=== PATIENT | female | born 1970 | race Caucasian/White ===

== ENCOUNTER 2016-10-20 22:35 | Emergency (ER) | payer BC, MEDICAID ==
[~2016-10-20] VITALS: Wt 69.1 kg
[2016-10-21] MEDS ORDERED: IPRATROPIUM (NEB) 0.5 MG/2.5 ML AMP NEB STA (00:51)
[2016-10-21] MEDS ORDERED: ALBUTEROL 0.083% (NEB) 2.5 MG/3 ML AMP NEB STA (00:51)
[2016-10-21] MEDS ORDERED: predniSONE 20 MG TAB PO STA (00:51)
--- NOTE | 2016-10-21 01:30 | ERD ---
ER Documentation Chief Complaint Date/Time DATE: 10/21/16 TIME: 01:26 Chief Complaint cough, congestion, back pain HPI This a 45-year-old female who presents to the emergency department today complaining of cough, congestion and pain in her back from coughing for the past 2 weeks. States she has seen her primary care doctor and was given promethazine with codeine with no improvement in symptoms. Denies any fevers or chills. ROS All systems reviewed and are negative except as per history of present illness. Medications Home Meds Active Scripts Fluticasone Propionate (Flonase Allergy Relief) 9.9 Ml [place].susp, 1 SPRAY NASAL BID, #1 BOTTLE TO EACH NOSTRIL Prov:ROBERTO JETER PA-C 10/21/16 Prednisone* (Prednisone*) 20 Mg Tab, 40 MG PO DAILY for 4 Days, TAB Prov:ROBERTO JETER PA-C 10/21/16 Albuterol Sulfate* (Proair HFA*) 8.5 Gm Hfa.aer.ad, 2 PUFF INH Q4, #1 INHALER Prov:ROBERTO JETER PA-C 10/21/16 Azithromycin* (Zithromax*) 250 Mg Tablet, 250 MG PO .ZPACK DIRECTED, #6 TAB TAKE 500 MG (2 TABS) THE FIRST DAY THEN 250 MG (1 TAB) DAYS 2-5 Prov:ROBERTO JETER PA-C 10/21/16 Allergies Allergies: Coded Allergies: Ampicillin (Verified Allergy, Intermediate, SOB, 07/24/07) PMhx/Soc Medical and Surgical Hx: pt denies Medical Hx, pt denies Surgical Hx History of Surgery: No Anesthesia Reaction: No Hx Neurological Disorder: No Hx Respiratory Disorders: No Hx Cardiac Disorders: No Hx Psychiatric Problems: No Hx Miscellaneous Medical Probl: No Hx Alcohol Use: No Hx Substance Use: No Hx Tobacco Use: No Smoking Status: Never smoker Physical Exam Vitals Vital Signs Date Time Temp Pulse Resp B/P Pulse Ox O2 Delivery O2 Flow Rate FiO2 10/21/16 01:11 89 20 98 21 10/20/16 22:46 98.1 67 20 139/75 100 Physical Exam Const: No acute distress Head: Atraumatic Eyes: Normal Conjunctiva ENT: Ears TMs normal. Nose no drainage. Throat no erythema no exudate Neck: Full range of motion..~ No meningismus. Resp: Right side upper lung hare with wheezing. Left-sided lung hare clear Cardio: Regular rate and rhythm, no murmurs Skin: No petechiae or rashes Back: No midline or flank tenderness Neur: Awake and alert Psych: Normal Mood and Affect Results 24 hrs Current Medications Medications (Trade) Dose Ordered Sig/Alec Route PRN Reason Start Time Stop Time Status Last Admin Dose Admin Albuterol (Proventil 0.083% (Neb)) 5 mg ONCE STAT NEB 10/21/16 00:51 10/21/16 00:53 DC 10/21/16 01:11 Ipratropium [place] (Atrovent 0.02% (Neb)) 0.5 mg ONCE STAT NEB 10/21/16 00:51 10/21/16 00:53 DC 10/21/16 01:11 Prednisone (Prednisone) 60 mg ONCE STAT PO 10/21/16 00:51 10/21/16 00:53 DC 10/21/16 01:52 DIAGNOSTIC IMAGING REPORT Patient: BRITTANI DOBSON : 1970 Age: 45 Sex: F MR #: [id number] DOS: 10/21/16 0051 Ordering MD: ROBERTO JETER PA-C Location: [facility] Room/Bed: PROCEDURE: XR Chest. CLINICAL INDICATION: Asthma exacerbation. TECHNIQUE: Single frontal view of the chest was obtained COMPARISON: None FINDINGS: The heart and mediastinum are within normal limits. Hyperinflation suggests a degree of COPD with changes of centrolobular emphysema. Lungs otherwise clear. There is no pleural effusion or pneumothorax. IMPRESSION: No acute disease. RPTAT: [facility] Physician David Date Time Electronically viewed and signed by Physician David on 10/21/2016 01:34 RS/ CC: ROBERTO JETER PA-C Procedures/MDM This is a 45-year-old female who presents to the emergency department today for cough, congestion and back pain with cough for the past 2 weeks. Patient has tried [id number]-[id number] medications. On physical exam patient did have some wheezing in the right-sided upper lung hare. She is afebrile and otherwise well-appearing her oxygen saturations 100% however given patient's wheezing and complaints of cough for the past 2 weeks I did obtain a chest x-ray as well as give the patient a breathing treatment here in the emergency department and prednisone. Chest x-ray shows hyperinflation suggesting a degree of COPD with changes of centrilobular emphysema. Lungs are otherwise clear. There is no pleural effusion or pneumothorax. There is no acute disease. I have explained the radiology results to the patient. I have low suspicion for strep pharyngitis, peritonsillar abscess, retropharyngeal abscess, otitis media, PNA, sinusitis, abscess, meningitis, sepsis, or other acute infectious bacterial process. Patient was given a prescription for azithromycin to treat possible bronchitis. Also give her an inhaler as well as Naprosyn and Flonase. Patient may continue taking her promethazine as prescribed. At this time the patient is stable for discharge and outpatient management. Patient should follow up with their PCP in the next 1-2 days for referral to pulmonology. Patient was given a list of resources.. They may return to the emergency department sooner for any persistent or worsening of symptoms. Patient understood and agreed with the plan. Departure Diagnosis: Primary Impression: Cough Condition: ROBERTO Ramirez PA-C Oct 21, 2016 01:30
--- NOTE | 2016-10-21 01:35 | RADRPT ---
PROCEDURE: XR Chest. CLINICAL INDICATION: Asthma exacerbation. TECHNIQUE: Single frontal view of the chest was obtained COMPARISON: None FINDINGS: The heart and mediastinum are within normal limits. Hyperinflation suggests a degree of COPD with changes of centrolobular emphysema. Lungs otherwise c lear. There is no pleural effusion or pneumothorax. IMPRESSION: No acute disease. RPTAT: [facility] Physician David Date Time Electronically viewed and signed by Yuri Lehman Physician on 10/21/2016 01:34 RS/
[2016-10-21] MEDS ORDERED: PRED20TA PO (02:05)
[2016-10-21] MEDS ORDERED: AZIT250T94 PO (02:05)
[2016-10-21] MEDS ORDERED: ALBU8.5H3 INH (02:05)
[2016-10-21] MEDS ORDERED: FLUT9.9S NASAL (02:06)
[2016-10-21] MEDS ORDERED: NAPR-260 PO (02:09)
[2016-10-21 02:24] VITALS: BP 131/74; PULSE 92; RESP 20; TEMP 98.1
== END 2016-10-21 02:25 | disposition home or self-care (01) ==
LOC: FTE 22:35
DX: R05 Cough (principal)
CPT/HCPCS: 71010; 94664; J7512; Z7502; Z7610

== ENCOUNTER 2017-07-01 11:36 | Emergency (ER) | payer BC, MEDICAID ==
[~2017-07-01] VITALS: Wt 73.1 kg
[~2017-07-01 11:36] MED LIST: ALBU8.5H3 INH; AZIT250T94 PO; FLUT9.9S NASAL; NAPR-260 PO; PRED20TA PO
[2017-07-01] MEDS ORDERED: SOD CHLORIDE 0.9% 1,000 ML IV STA (12:59)
[2017-07-01] MEDS ORDERED: ONDANSETRON 4 MG INJ IV STA (12:59)
[2017-07-01] MEDS ORDERED: morphine 4 MG/ML VIAL IV STA (12:59)
[2017-07-01 14:03] LABS: BASOPHILS % 0.3 % (0.0-2.0); EOSINOPHILS # 0.2 10^3/ul (0.0-0.5); EOSINOPHILS % 2.8 % (0.0-7.0); HEMOGLOBIN 13.3 g/dl (12.0-16.0); LYMPHOCYTES # 1.9 10^3/ul (0.8-2.9); LYMPHOCYTES % 29.4 % (15.0-51.0); MEAN CORPUSCULAR HEMOGLOBIN 29.9 pg (29.0-33.0); MEAN CORPUSCULAR HGB CONC 33.3 g/dl (32.0-37.0); MEAN CORPUSCULAR VOLUME 89.9 fl (82.0-101.0); MEAN PLATELET VOLUME 9.2 fl (7.4-10.4); MONOCYTE # 0.3 10^3/ul (0.3-0.9); MONOCYTES % 4.7 % (0.0-11.0); NEUTROPHILS % 62.5 % (39.0-77.0); PLATELET COUNT 325 10^3/UL (140-415); RED BLOOD COUNT 4.45 10^6/ul (4.20-5.40); RED CELL DISTRIBUTION WIDTH 12.9 % (11.5-14.5); WHITE BLOOD COUNT 6.4 10^3/ul (4.8-10.8)
[2017-07-01 14:06] LABS: ADD UMIC YES; UR ASCORBIC ACID NEGATIVE (NEGATIVE); UR BACTERIA MANY /HPF (NONE SEEN); UR BILIRUBIN (Dip) NEGATIVE (NEGATIVE); UR BLOOD (Dip) 2+ mg/dL (NEGATIVE); UR CLARITY CLEAR (CLEAR); UR COLOR YELLOW (YELLOW); UR GLUCOSE (Dip) NEGATIVE (NEGATIVE); UR KETONES (Dip) NEGATIVE (NEGATIVE); UR LEUKOCYTE ESTERASE (Dip) NEGATIVE Leu/ul (NEGATIVE); UR NITRITE (Dip) NEGATIVE (NEGATIVE); UR RBC 2 /HPF (0-5); UR SPECIFIC GRAVITY (Dip) 1.009 (1.003-1.030); UR TOTAL PROTEIN (Dip) NEGATIVE (NEGATIVE); UR UROBILINOGEN (Dip) NEGATIVE (NEGATIVE)
[2017-07-01 14:20] LABS: ALBUMIN 4.9 g/dl (3.3-4.9); ALBUMIN/GLOBULIN RATIO 1.44; BILIRUBIN,INDIRECT 0.2 mg/dl (0-1.1); BILIRUBIN,TOTAL 0.2 mg/dl (0.2-1.3); CALCIUM 9.6 mg/dl (8.4-10.2); CREATININE 0.61 mg/dl (0.44-1.00); POTASSIUM 3.6 mmol/L (3.5-5.1); TOTAL PROTEIN 8.3 g/dl (6.1-8.1)
--- NOTE | 2017-07-01 14:54 | RADRPT ---
PROCEDURE: CT Abdomen and Pelvis without contrast. CLINICAL INDICATION: Abdominal pain. TECHNIQUE: CT scan of the abdomen and pelvis without contrast was performed on a multidetector hig h-resolution CT scanner. The patient was scanned without intravenous contrast. Coronal and sagittal reformatted images were obtained from the axial source images. Images were reviewed on a high-resol [employer] PACS workstation. The total exam CTDI equals 10.07 mGy and the total exam DLP equals 585.57 mG y-cm. One or the following dose reduction techniques were used: -Automated exposure control. -Adjustment of the mA and/or KV according to patient's size. -Use of iterative reconstruction technique. DICOM images are available. COMPARISON: None. FINDINGS: Lung Bases: Unremarkable. GI:. Unremarkable. Liver: There is a slight decrease in the overall hepatic attenuation consistent with mild steatosis. Gallbladder: Unremarkable. Pancreas: Unremarkable. Spleen: Unremarkablel Adrenals: Unremarkable. Kidneys: There is no evidence of urolithiasis or obstructive uropathy. Bladder: Unremarkable. Pelvic Organs: Unremarkable. Skeleton: Normal for age. Other: N/A IMPRESSION: 1. Mild decreased attenuation in the liver consistent with diffuse steatosis. 2. No evidence of urolithiasis or obstructive uropathy. 3. No evidence of a mass, lymphadenopathy or acute inflammatory process. RPTAT: [facility] Physician Sharla Date Time Electronically viewed and signed by Physician Sharla on 07/01/2017 14:54 /
[2017-07-01] MEDS ORDERED: DICY10CA60 PO (15:21)
[2017-07-01] MEDS ORDERED: SIME180C4 PO (15:22)
--- NOTE | 2017-07-01 19:27 | ERD ---
ER Documentation Chief Complaint Chief Complaint ABD PAIN X3 WEEKS, VOMITING, NO DIARRHEA, SENT PER PMD FOR EVAL HPI This is a 46-year-old female presents to the ER with left-sided abdominal pain for the last 3 weeks. Patient states that pain began as a crampy mild pain however has not gotten worse. Patient is typically constipated however the last 2 days she had diarrhea. Diarrhea is nonbloody. Patient admits to nausea however denies any vomiting. She complains of getting very bloated. Patient denies any fevers or chills. Patient went to her PCP and she was sent to the ER to rule out diverticulitis. ROS 12 point review of systems was done, all negative except per HPI. Medications Home Meds Active Scripts Simethicone (GAS-X ULTRA STRENGTH) 180 Mg Capsule, 180 MG PO Q6 for 3 Days, CAP Prov:CLIFFORD,IVANIA C 07/01/17 Dicyclomine Hcl* (Bentyl*) 10 Mg Capsule, 10 MG PO QID for 7 Days, CAP Prov:IVANIA HORTON 07/01/17 Naproxen* (Naprosyn*) 500 Mg Tablet, 500 MG PO BID Y for PAIN AND/OR INFLAMMATION, #30 TAB Prov:ROBERTO JETER PA-C 10/21/16 Fluticasone Propionate (Flonase Allergy Relief) 9.9 Ml [place].susp, 1 SPRAY NASAL BID, #1 BOTTLE TO EACH NOSTRIL Prov:ROBERTO JETER PA-C 10/21/16 Prednisone* (Prednisone*) 20 Mg Tab, 40 MG PO DAILY for 4 Days, TAB Prov:ROBERTO JETER PA-C 10/21/16 Albuterol Sulfate* (Proair HFA*) 8.5 Gm Hfa.aer.ad, 2 PUFF INH Q4, #1 INHALER Prov:ROBERTO JETER PA-C 10/21/16 Azithromycin* (Zithromax*) 250 Mg Tablet, 250 MG PO .ZPACK DIRECTED, #6 TAB TAKE 500 MG (2 TABS) THE FIRST DAY THEN 250 MG (1 TAB) DAYS 2-5 Prov:ROBERTO JETER PA-C 10/21/16 Allergies Allergies: Coded Allergies: Ampicillin (Verified Allergy, Intermediate, SOB, 07/24/07) PMhx/Soc History of Surgery: Yes ( X 2 ) Anesthesia Reaction: No Hx Neurological Disorder: No Hx Respiratory Disorders: Yes (ASTHMA) Hx Cardiac Disorders: Yes (HYPERLIPIDS) Hx Psychiatric Problems: No Hx Miscellaneous Medical Probl: Yes (HYPERTHYROIDISM) Hx Alcohol Use: No Hx Substance Use: No Hx Tobacco Use: No Smoking Status: Never smoker Physical Exam Vitals Vital Signs Date Time Temp Pulse Resp B/P Pulse Ox O2 Delivery O2 Flow Rate FiO2 07/01/17 11:38 98.5 61 17 138/72 99 Physical Exam GENERAL: The patient is well developed and appropriate for usual state of health , in no apparent distress. HEENT: Atraumatic. CHEST: Clear to auscultation bilaterally. There are no rales, wheezes or rhonchi. HEART: Regular rate and rhythm. No murmurs, clicks, rubs or gallops. ABDOMEN: Soft, nontender and nondistended. Good bowel sounds. No rebound or guarding. No gross peritonitis. No gross organomegaly or masses. No Martino sign or McBurney point tenderness. BACK: No midline or flank tenderness. NEURO: Alert and oriented. Result Diagram: 07/01/17 1310 07/01/17 1310 Results 24 hrs Laboratory Tests Test 07/01/17 13:10 White Blood Count 6.410^3/ul Red Blood Count 4.4510^6/ul Hemoglobin 13.3g/dl Hematocrit 40.0% Mean Corpuscular Volume 89.9fl Mean Corpuscular Hemoglobin 29.9pg Mean Corpuscular Hemoglobin Concent 33.3g/dl Red Cell Distribution Width 12.9% Platelet Count 61226^3/UL Mean Platelet Volume 9.2fl Neutrophils % 62.5% Lymphocytes % 29.4% Monocytes % 4.7% Eosinophils % 2.8% Basophils % 0.3% Nucleated Red Blood Cells % 0.0/100WBC Neutrophils # 4.010^3/ul Lymphocytes # 1.910^3/ul Monocytes # 0.310^3/ul Eosinophils # 0.210^3/ul Basophils # 0.010^3/ul Nucleated Red Blood Cells # 0.010^3/ul Urine Color YELLOW Urine Clarity CLEAR Urine pH 7.0 Urine Specific [place] 1.009 Urine Ketones NEGATIVEmg/dL Urine Nitrite NEGATIVEmg/dL Urine Bilirubin NEGATIVEmg/dL Urine Urobilinogen NEGATIVEmg/dL Urine Leukocyte Esterase NEGATIVELeu/ul Urine Microscopic RBC 2/HPF Urine Microscopic WBC 1/HPF Urine Bacteria MANY/HPF Urine Hemoglobin 2+mg/dL Urine Glucose NEGATIVEmg/dL Urine Total Protein NEGATIVEmg/dl Sodium Level 144mmol/L Potassium Level 3.6mmol/L Chloride Level 103mmol/L Carbon Dioxide Level 28mmol/L Anion Gap 17 Blood Urea Nitrogen 12mg/dl Creatinine 0.61mg/dl Glucose Level 88mg/dl Calcium Level 9.6mg/dl Total Bilirubin 0.2mg/dl Direct Bilirubin 0.00mg/dl Indirect Bilirubin 0.2mg/dl Aspartate Amino Transf (AST/SGOT) 33IU/L Alanine Aminotransferase (ALT/SGPT) 49IU/L Alkaline Phosphatase 95IU/L Total Protein 8.3g/dl Albumin 4.9g/dl Globulin 3.40g/dl Albumin/Globulin Ratio 1.44 Lipase 153U/L Current Medications Medications (Trade) Dose Ordered Sig/Alec Route PRN Reason Start Time Stop Time Status Last Admin Dose Admin Sodium Chloride (NS) 1,000 ml @ 1,000 mls/hr Q1H STAT IV 07/01/17 12:59 07/01/17 13:58 DC 07/01/17 13:50 Morphine Sulfate (morphine) 4 mg ONCE STAT IV 07/01/17 12:59 07/01/17 13:00 DC 07/01/17 13:50 Ondansetron HCl (Zofran Inj) 4 mg ONCE STAT IV 07/01/17 12:59 07/01/17 13:00 DC 07/01/17 13:49 Procedures/MDM Differential diagnosis includes but is not limited to appendicitis, hernia,, UTI , constipation, ectopic , ovarian torsion, PID, Mittelschmerz, fibroid , diverticulitis, diverticulosis, abscess. This is a 46-year-old female presents to the ER with left lower quadrant abdominal pain over the last 3 weeks. At this time there is no evidence of diverticulitis or any other intra- abdominal emergency. Patient's physical examination is benign she is afebrile and well-appearing. Patient will be sent home with Denys Syed. She is to follow-up with her primary care doctor within 1-2 days return to ER sooner if symptoms worsen. Medical decision making sure with the patient she understands and agrees with plan. Departure Diagnosis: Primary Impression: Abdominal pain Condition: Stable Patient Instructions: Abdominal Pain Referrals: DAAN GATES MD (PCP) Additional Instructions: Regrese a estas instalaciones dentro de [facility] para un examen de seguimiento.Regrese antes si elkins condicin se empeora. IVANIA HORTON Jul 01, 2017 19:27
== END 2017-07-01 15:55 | disposition home or self-care (01) ==
LOC: FTE 11:36
DX: R10.9 Unspecified abdominal pain (principal); J45.909 Unspecified asthma, uncomplicated
CPT/HCPCS: 36415; 74176; 80053; 81001; 83690; 85025; 96374; 96375; J2270; J2405; J7030; Z7502